=== PATIENT | male | born 1950 | race Caucasian/White ===

== ENCOUNTER 2017-10-24 04:58 | Inpatient (IN) | payer OTHER, MEDICARE ==
[~2017-10-24] VITALS: Ht 177.8 cm; Wt 89.6 kg
[~2017-10-24 04:58] MED LIST: Diovan HCT 320/25 PO; Flexeril PO; HYDROCHLOROTHIA25 MG PO; LISINOPRIL40 MG PO; MOBIC7.5 MG PO; Percocet 5/325,Endoc PO; Protonix PO; ULTRACET1 TABLET PO; Ultram PO; celeBREX PO
[2017-10-24 06:03] LABS: HEMATOCRIT 45.1 % (38.0-50.0); MCH 31.1 PG (29.0-34.0); MCHC 35.5 G/DL (30.0-36.0); MCV 87.6 FL (86-99); MEAN PLAT.VOLUME 12.6 uM^3 (9.0-12.4); PLATELET COUNT 240 K/uL (156-360); RBC DIS.WIDTH-CV 11.9 % (11.8-14.6); RBC DIS.WIDTH-SD 38.3 % (39-53); RED BLOOD COUNT 5.15 M/uL (4.00-5.50); WHITE BLOOD COUNT 16.1 K/uL (4.1-10.2)
[2017-10-24 06:13] LABS: CHLORIDE 94 mEq/L (99-109); POTASSIUM 5.7 mEq/L (3.7-5.4); SODIUM 131 mEq/L (136-147)
[2017-10-24 06:16] LABS: ANION GAP 17 MEQ/L (2-14)
[2017-10-24 06:17] LABS: TOTAL BILIRUBIN 0.6 mg/dL (0.0-1.0)
[2017-10-24 06:18] LABS: ALKALINE PHOSPHATASE 91 IU/L (3-129)
[2017-10-24 06:19] LABS: GFR ESTIMATE (CALCULATED) 40 mL/min/
[2017-10-24 06:20] LABS: UREA NITROGEN (BUN) 42 mg/dL (9-23)
[2017-10-24 06:23] LABS: GLUCOSE 657 mg/dL (70-99)
[2017-10-24 07:04] LABS: ADD MIUA? NO; BILIRUBIN NEGATIVE; BLOOD NEGATIVE; COLOR STRAW ((YELLOW)); GLUCOSE (STRIP) >=500; KETONES 5; LEUKOCYTES NEGATIVE; NITRITE NEGATIVE; PROTEIN (STRIP) NEGATIVE; SPECIFIC GRAVITY 1.026 (1.000-1.030); UCUL ADDED? NO; UROBILINOGEN 0.2 MG/DL (0.2-1.0)
[2017-10-24 07:21] LABS: BASE EXCESS -5.2 mEq/L (-3 to +3); CARBOXY HGB 1.5 % (0-5); COMMENTS - BLOOD GASES A+C+; METHEMOGLOBIN 0.7 % (0-1.5); PCO2 37 mm Hg (35-45); PO2 92 mm Hg (80-100); SITE RR; TOTAL RESP RATE 18 resp/min; pH 7.34 (7.35-7.45)
[2017-10-24] MEDS ORDERED: JANUVIA100 MG PO (08:17)
[2017-10-24] MEDS ORDERED: PANTOPRAZOLE SO40 MG PO (08:18)
[2017-10-24] MEDS ORDERED: LOPRESSOR50 MG PO (08:18)
[2017-10-24 08:19] LABS: POINT-OF-CARE METER ID UU13113702
[2017-10-24] MEDS ORDERED: ATORVASTATIN CA10 MG PO (08:19)
[2017-10-24] MEDS ORDERED: METFORMIN HCL500 M1 PO (08:20)
[2017-10-24] MEDS ORDERED: TRAMADOL HCL50 MG PO (08:20)
[2017-10-24] MEDS ORDERED: VALSARTAN-HCTZ1 EAC3 PO (08:20)
[2017-10-24] MEDS ORDERED: [UNRECOGNIZED DRUG - OTHER] PO (08:23)
[2017-10-24 10:13] LABS: POINT-OF-CARE METER ID UU13113702
[2017-10-24 11:34] LABS: POINT-OF-CARE METER ID UU14208750
[2017-10-24 11:38] VITALS: BP 102/59
[2017-10-24 17:19] LABS: POINT-OF-CARE METER ID UU14314084
[2017-10-24 19:05] VITALS: BP 117/67
[2017-10-24 22:02] LABS: POINT-OF-CARE METER ID UU14162508
[2017-10-24 23:32] VITALS: BP 117/62
[2017-10-25 03:35] VITALS: BP 88/52
[2017-10-25 06:14] LABS: ANION GAP 7 MEQ/L (2-14); CHLORIDE 106 MEQ/L (99-109); GFR ESTIMATE (CALCULATED) > 59 mL/min/; GLUCOSE 208 mg/dL (70-99); POTASSIUM 3.6 MEQ/L (3.7-5.4); SAMPLE HEMOLYSIS CHECK 0; SAMPLE ICTERIC CHECK 0; SAMPLE LIPEMIA CHECK 0; SODIUM 138 MEQ/L (136-147); UREA NITROGEN (BUN) 24 mg/dL (9-23)
[2017-10-25 06:39] LABS: POINT-OF-CARE METER ID UU14162508
[2017-10-25 07:55] VITALS: BP 102/55
[2017-10-25 10:52] LABS: PROBE CHECK ND; SPECIMEN PROCESSING CONTROL ND
[2017-10-25 10:54] LABS: C DIFF TOXIN ND (NEGATIVE)
[2017-10-25 10:56] VITALS: BP 115/58
[2017-10-25 16:23] VITALS: BP 111/64
[2017-10-25 16:32] LABS: POINT-OF-CARE METER ID UU14162508
[2017-10-25 19:05] VITALS: BP 119/59
[2017-10-25 20:48] LABS: POINT-OF-CARE METER ID UU14162508
[2017-10-25 21:03] LABS: POINT-OF-CARE METER ID UU14162508
[2017-10-25 23:45] VITALS: BP 113/65
[2017-10-26 03:40] VITALS: BP 120/60
[2017-10-26 06:40] LABS: POINT-OF-CARE METER ID UU14208750
[2017-10-26 06:59] LABS: ANION GAP 8 MEQ/L (2-14); CHLORIDE 110 MEQ/L (99-109); GFR ESTIMATE (CALCULATED) > 59 mL/min/; GLUCOSE 214 mg/dL (70-99); POTASSIUM 4.3 MEQ/L (3.7-5.4); SAMPLE HEMOLYSIS CHECK 0; SAMPLE ICTERIC CHECK 0; SAMPLE LIPEMIA CHECK 0; SODIUM 143 MEQ/L (136-147); UREA NITROGEN (BUN) 17 mg/dL (9-23)
[2017-10-26 07:12] LABS: BASOPHIL COUNT 0.1 K/uL (0-0.1); EOSINOPHIL (%) 2.5 % (0-5); EOSINOPHIL COUNT 0.2 K/uL (0-0.3); HEMATOCRIT 35.7 % (38.0-50.0); IMMATURE GRANULOCYTE (%) 0.5 % (0.0-0.7); INSTRUMENT ABS NEUTROPHIL CT 4.5 K/uL; LYMPHOCYTE COUNT 3.1 K/uL (1.0-2.8); MCH 30.8 PG (29.0-34.0); MCHC 34.7 G/DL (30.0-36.0); MCV 88.6 FL (86-99); MONOCYTE (%) 8.1 % (3-12); MONOCYTE COUNT 0.7 K/uL (0-0.8); NEUTROPHIL (%) 52.5 % (45-76); NEUTROPHIL COUNT 4.5 K/uL (1.8-6.4); RBC DIS.WIDTH-CV 11.9 % (11.8-14.6); RBC DIS.WIDTH-SD 38.2 % (39-53); WHITE BLOOD COUNT 8.6 K/uL (4.1-10.2)
[2017-10-26 07:23] LABS: RED BLOOD COUNT 4.03 M/uL (4.00-5.50)
[2017-10-26 07:31] LABS: MEAN PLAT.VOLUME 12.4 uM^3 (9.0-12.4); PLAT.SUFFICIENCY ADEQUATE
[2017-10-26 07:39] LABS: PLATELET COUNT 149 K/uL (156-360)
[2017-10-26 08:24] VITALS: BP 129/78
[2017-10-26 11:42] VITALS: BP 119/69
[2017-10-26 11:55] LABS: POINT-OF-CARE METER ID UU14208750
[2017-10-26 15:16] VITALS: BP 127/82
[2017-10-26 16:32] LABS: POINT-OF-CARE METER ID UU14162508
[2017-10-26 19:26] VITALS: BP 128/84
[2017-10-26 21:20] LABS: POINT-OF-CARE METER ID UU14162508
[2017-10-26 23:30] VITALS: BP 136/73
[2017-10-27 03:36] VITALS: BP 141/70
[2017-10-27 06:44] LABS: POINT-OF-CARE METER ID UU14208750
[2017-10-27 06:49] VITALS: BP 139/71
[2017-10-27 11:29] LABS: POINT-OF-CARE METER ID UU14162508; POINT-OF-CARE USER ID PUTDRM
[2017-10-27] MEDS ORDERED: NOVOLOG PE100 UNITS/ SC (15:30)
[2017-10-27] MEDS ORDERED: LEVEMIR100 UNIT/2 SC (15:30)
== END 2017-10-27 16:39 | disposition home or self-care (01) | DRG 683 ==
LOC: EME 04:58 → EDOF 07:47 → 2EAST 07:47 → CANRESERV 07:54 → ENRESERV 07:54 → 2EAST 09:09
PROVIDERS: Emergency Medicine; Internal Medicine; Physician Assistant; Student in an Organized Health Care Education/Training Program
DX: N17.9 Acute kidney failure, unspecified (principal); E11.65 Type 2 diabetes mellitus with hyperglycemia; E83.52 Hypercalcemia; E86.0 Dehydration; E87.1 Hypo-osmolality and hyponatremia; E87.5 Hyperkalemia; E87.6 Hypokalemia; D72.829 Elevated white blood cell count, unspecified; I10 Essential (primary) hypertension; K21.9 Gastro-esophageal reflux disease without esophagitis; R19.7 Diarrhea, unspecified; R35.0 Frequency of micturition; H91.90 Unspecified hearing loss, unspecified ear; Z87.891 Personal history of nicotine dependence
CPT/HCPCS: 36600; 80048; 80053; 81003; 82010; 82803; 82948; 85025; 85027; 87493; 93005; 99281; 99285; J1644; J1815; J7030; S0028